=== PATIENT | female | born 1965 ===

== ENCOUNTER 2021-06-16 12:38 | Emergency (ER) | payer SELFPAY ==
[2021-06-16] MEDS ORDERED: ETOMIDATE 20 MG/10 ML INJ IV ONE (13:57)
[2021-06-16] MEDS ORDERED: ROCURONIUM 50 MG/5 ML INJ IV ONE (13:58)
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
[2021-06-16 17:36] VITALS: BP 119/89
== END 2021-06-16 17:36 | disposition home or self-care (01) ==
LOC: ED 12:38
DX: M54.9 Dorsalgia, unspecified (principal); V87.7XXA Person injured in collision between other specified motor vehicles (traffic), initial encounter; Y93.89 Activity, other specified; Y92.488 Other paved roadways as the place of occurrence of the external cause; Y99.8 Other external cause status
CPT/HCPCS: 99282; J3490